=== PATIENT | male | born 1965 | race Caucasian/White ===

== ENCOUNTER 2017-03-13 07:47 | Inpatient (IN) | payer MEDICARE, OTHER ==
[~2017-03-13] VITALS: Ht 182.9 cm; Wt 122.5 kg
[2017-03-13 09:21] LABS: HEMOGLOBIN 11.6 gm/dl (14.0-17.5); RED BLOOD COUNT 3.87 M/UL (4.20-5.50); WHITE BLOOD COUNT 18.3 K/UL (4.5-11.0)
[2017-03-13 09:38] LABS: BUN/CREATININE RATIO 18 (0-10)
[2017-03-13 20:44] LABS: BUN/CREATININE RATIO 14 (0-10)
[2017-03-14 06:03] LABS: HEMOGLOBIN 11.2 gm/dl (14.0-17.5); RED BLOOD COUNT 3.77 M/UL (4.20-5.50); WHITE BLOOD COUNT 12.8 K/UL (4.5-11.0)
[2017-03-14 06:27] LABS: BUN/CREATININE RATIO 14 (0-10)
[2017-03-15 05:54] LABS: BUN/CREATININE RATIO 13 (0-10)
[2017-03-15 06:14] LABS: RED BLOOD COUNT 3.68 M/UL (4.20-5.50); WHITE BLOOD COUNT 11.8 K/UL (4.5-11.0)
[2017-03-16 05:29] LABS: HEMOGLOBIN 11.1 gm/dl (14.0-17.5); RED BLOOD COUNT 3.75 M/UL (4.20-5.50)
[2017-03-16 05:35] LABS: WHITE BLOOD COUNT 18.5 K/UL (4.5-11.0)
[2017-03-16 05:48] LABS: BUN/CREATININE RATIO 9 (0-10)
[2017-03-17 04:47] LABS: HEMOGLOBIN 11.7 gm/dl (14.0-17.5); RED BLOOD COUNT 3.94 M/UL (4.20-5.50); WHITE BLOOD COUNT 17.7 K/UL (4.5-11.0)
[2017-03-17 05:13] LABS: BUN/CREATININE RATIO 8 (0-10)
[2017-03-18 05:20] LABS: HEMOGLOBIN 11.9 gm/dl (14.0-17.5); RED BLOOD COUNT 4.01 M/UL (4.20-5.50)
[2017-03-18 05:25] LABS: WHITE BLOOD COUNT 11.7 K/UL (4.5-11.0)
[2017-03-19 04:42] LABS: HEMOGLOBIN 12.4 gm/dl (14.0-17.5); RED BLOOD COUNT 4.22 M/UL (4.20-5.50); WHITE BLOOD COUNT 9.2 K/UL (4.5-11.0)
[2017-03-19] MEDS ORDERED: MIRALAX17 GM PO (14:40)
[2017-03-19] MEDS ORDERED: OXYCODONE-ACET1 EAC1 PO (14:41)
[2017-03-19] MEDS ORDERED: FLAGYL500 MG PO (14:42)
[2017-03-19] MEDS ORDERED: CIPRO500 MG PO (14:42)
[2017-03-19] MEDS ORDERED: ZYVOX 600 MG T600 MG PO (14:43)
[2017-03-19] MEDS ORDERED: OXYCODONE HCL5 MG PO (15:01)
== END 2017-03-19 19:13 | disposition home or self-care (01) | DRG 603 ==
LOC: ER1 07:47 → ZEROF 12:05 → MED SURG 4 12:05
PROVIDERS: Internal Medicine; Physician Assistant Medical; ADMIT Internal Medicine
DX: L03.311 Cellulitis of abdominal wall (principal); E87.1 Hypo-osmolality and hyponatremia; R65.10 Systemic inflammatory response syndrome (SIRS) of non-infectious origin without acute organ dysfunction; N39.0 Urinary tract infection, site not specified; K62.89 Other specified diseases of anus and rectum; E11.9 Type 2 diabetes mellitus without complications; I10 Essential (primary) hypertension; M19.90 Unspecified osteoarthritis, unspecified site; K21.9 Gastro-esophageal reflux disease without esophagitis; F17.210 Nicotine dependence, cigarettes, uncomplicated; E66.01 Morbid (severe) obesity due to excess calories; K76.0 Fatty (change of) liver, not elsewhere classified; K59.09 Other constipation; B96.20 Unspecified Escherichia coli [E. coli] as the cause of diseases classified elsewhere; E87.6 Hypokalemia; Z86.010 Personal history of colon polyps; Z68.36 Body mass index [BMI] 36.0-36.9, adult
CPT/HCPCS: 36415; 80048; 80053; 80202; 81001; 82009; 82150; 82962; 83036; 83605; 83690; 83735; 85025; 85027; 85610; 87040; 87077; 87081; 87086; 87186; 93005; 96361; 96365; 96375; 99285; J0696; J2270; J2405; J3370; J7030; J7040; J7050; J7070; Q9962

== ENCOUNTER 2021-07-06 06:10 | Emergency (ER) | payer MEDICARE, OTHER ==
[~2021-07-06 06:10] MED LIST: CIPRO500 MG PO; CLINDAMYCIN HC150 MG PO; FLAGYL500 MG PO; MIRALAX17 GM PO; NORFLEX 100 MG100 MG PO; OXYCODONE HCL5 MG PO; OXYCODONE-ACET1 EAC1 PO; ZYVOX 600 MG T600 MG PO
[2021-07-06 06:52] LABS: HEMOGLOBIN 16.6 gm/dl (14.0-17.5); RED BLOOD COUNT 5.53 M/UL (4.20-5.50); WHITE BLOOD COUNT 7.6 K/UL (4.5-11.0)
[2021-07-06 07:14] LABS: BUN/CREATININE RATIO 13 (0-10)
[2021-07-06] MEDS ORDERED: ASPIRIN CHEWABL81 MG PO (12:39)
[2021-07-06] MEDS ORDERED: CARDIZEM CD180 MG PO (12:39)
== END 2021-07-06 13:25 | disposition left against medical advice (07) ==
LOC: ER1 06:10
PROVIDERS: Physician Assistant
DX: I48.91 Unspecified atrial fibrillation (principal); Z20.822 Contact with and (suspected) exposure to COVID-19; E11.9 Type 2 diabetes mellitus without complications; F17.200 Nicotine dependence, unspecified, uncomplicated
CPT/HCPCS: 80053; 81001; 82150; 82550; 82553; 83605; 83690; 83874; 84484; 85025; 85610; 93005; 96374; 96375; 99283; J2270; J2405; Q9967; U0002

== ENCOUNTER 2021-09-06 06:41 | Inpatient (IN) | payer MEDICARE, OTHER ==
[~2021-09-06] VITALS: Ht 182.9 cm; Wt 124.8 kg
[~2021-09-06 06:41] MED LIST changes: +ASPIRIN CHEWABL81 MG PO; +CARDIZEM CD180 MG PO
[2021-09-06] MEDS ORDERED: IBUPROFEN200 MG PO (16:20)
[2021-09-06] MEDS ORDERED: PRILOSEC OTC20 MG PO (16:21)
[2021-09-06 18:34] LABS: BUN/CREATININE RATIO 13 (0-10)
[2021-09-07 02:12] LABS: HEMOGLOBIN 12.5 gm/dl (14.0-17.5); RED BLOOD COUNT 4.53 M/UL (4.20-5.50); WHITE BLOOD COUNT 5.4 K/UL (4.5-11.0)
[2021-09-07 02:30] LABS: BUN/CREATININE RATIO 15 (0-10)
[2021-09-08 05:11] LABS: HEMOGLOBIN 13.2 gm/dl (14.0-17.5); RED BLOOD COUNT 4.69 M/UL (4.20-5.50); WHITE BLOOD COUNT 5.1 K/UL (4.5-11.0)
[2021-09-08 05:28] LABS: BUN/CREATININE RATIO 12 (0-10)
[2021-09-09 04:00] LABS: BUN/CREATININE RATIO 18 (0-10)
[2021-09-09 05:04] LABS: HEMOGLOBIN 13.5 gm/dl (14.0-17.5); RED BLOOD COUNT 4.69 M/UL (4.20-5.50); WHITE BLOOD COUNT 6.9 K/UL (4.5-11.0)
[2021-09-10 03:25] LABS: HEMOGLOBIN 13.8 gm/dl (14.0-17.5); RED BLOOD COUNT 4.88 M/UL (4.20-5.50); WHITE BLOOD COUNT 6.4 K/UL (4.5-11.0)
[2021-09-10 03:30] LABS: BUN/CREATININE RATIO 14 (0-10)
[2021-09-10] MEDS ORDERED: ATORVASTATIN CA20 MG PO (10:34)
[2021-09-10] MEDS ORDERED: ISOSORBIDE MONO30 MG PO (10:34)
[2021-09-10] MEDS ORDERED: LISINOPRIL5 MG PO (10:34)
[2021-09-10] MEDS ORDERED: METOPROLOL SUCC25 MG PO (10:34)
[2021-09-10] MEDS ORDERED: ASPIRIN EC81 MG PO (10:34)
[2021-09-10] MEDS ORDERED: ELIQUIS5 MG PO (10:38)
[2021-09-10] MEDS ORDERED: CEPHALEXIN500 M1 PO (10:38)
[2021-09-10] MEDS ORDERED: COMBIVENT RESPIM4 GM INH (10:44)
[2021-09-10] MEDS ORDERED: LASIX40 MG PO (10:53)
== END 2021-09-10 11:28 | disposition home or self-care (01) | DRG 273 ==
LOC: PROG CARE 15:48
PROVIDERS: Internal Medicine; ADMIT Internal Medicine
PROC: 4A023FZ Measurement of Cardiac Rhythm, Percutaneous Approach (ICD-10-PCS; 2021-09-06)
PROC: 4A0234Z Measurement of Cardiac Electrical Activity, Percutaneous Approach (ICD-10-PCS; 2021-09-06)
PROC: B24BZZZ Ultrasonography of Heart with Aorta (ICD-10-PCS; 2021-09-07)
PROC: 02583ZZ Destruction of Conduction Mechanism, Percutaneous Approach (ICD-10-PCS; principal; 2021-09-08)
PROC: 4A023FZ Measurement of Cardiac Rhythm, Percutaneous Approach (ICD-10-PCS; 2021-09-08)
PROC: 4A0234Z Measurement of Cardiac Electrical Activity, Percutaneous Approach (ICD-10-PCS; 2021-09-08)
PROC: 02K83ZZ Map Conduction Mechanism, Percutaneous Approach (ICD-10-PCS; 2021-09-08)
DX: I48.92 Unspecified atrial flutter (principal); I50.33 Acute on chronic diastolic (congestive) heart failure; I21.4 Non-ST elevation (NSTEMI) myocardial infarction; J96.01 Acute respiratory failure with hypoxia; Z20.822 Contact with and (suspected) exposure to COVID-19; L03.116 Cellulitis of left lower limb; L03.115 Cellulitis of right lower limb; E11.9 Type 2 diabetes mellitus without complications; K21.9 Gastro-esophageal reflux disease without esophagitis; B19.20 Unspecified viral hepatitis C without hepatic coma; I11.0 Hypertensive heart disease with heart failure; I87.8 Other specified disorders of veins; I25.5 Ischemic cardiomyopathy; K59.00 Constipation, unspecified; I42.8 Other cardiomyopathies; I45.81 Long QT syndrome; I08.3 Combined rheumatic disorders of mitral, aortic and tricuspid valves; Z79.01 Long term (current) use of anticoagulants; F17.210 Nicotine dependence, cigarettes, uncomplicated; Z79.82 Long term (current) use of aspirin; Z87.19 Personal history of other diseases of the digestive system; Z85.3 Personal history of malignant neoplasm of breast; Z98.890 Other specified postprocedural states; Z88.8 Allergy status to other drugs, medicaments and biological substances; Z80.0 Family history of malignant neoplasm of digestive organs; Z88.5 Allergy status to narcotic agent; Z88.2 Allergy status to sulfonamides
CPT/HCPCS: ECHO; 36415; 71045; 73630; 76705; 78452; 80053; 80061; 80202; 82550; 82553; 82962; 83036; 83690; 83735; 83880; 84439; 84443; 84484; 85025; 85027; 85730; 87040; 93005; 93017; 93306; 93312; 93320; 93609; 93620; 93621; 93623; 93655; 93970; 94640; 94664; 94760; 97161; 99152; 99153; A9502; C1730; C1733; C1766; J0690; J0692; J1644; J1940; J2250; J2270; J2785; J3010; J3370; J3475; J7040; J7050; J7070; Q9967; U0002